=== PATIENT | male | born 1995 | race Caucasian/White ===

== ENCOUNTER 2024-06-13 16:46 | Emergency (ER) | payer OTHER ==
[2024-06-13 16:56] VITALS: RESP 18
--- NOTE | 2024-06-13 17:46 | ED ---
Male Urogenital HPI - General Chief complaint: Urogenital Stated complaint: UROGENITAL Time Seen by Provider: 06/13/24 16:57 Source: patient, RN notes reviewed, old records reviewed Mode of arrival: ambulatory Limitations: no limitations - History of Present Illness Initial comments: This is a 29-year-old male to the ER for evaluation of genital ulcers and pain painful lesions on the shaft of his penis. Patient believeshis ex and answered to the [place] has been sleeping around Complaint: testicle pain -: hour(s) Location: penis Radiation: none Severity: moderate Severity scale (1-10): 4 Consistency: constant Improves with: none Worsens with: none Reports: denies other symptoms - Related Data Previous Rx's Medication Instructions Recorded valACYclovir HCL [Valtrex] 1,000 mg PO BID #60 tablet 06/13/24 Allergies Allergy/AdvReac Type Severity Reaction Status Date / Time No Known Allergies Allergy Verified 06/13/24 16:51 Review of Systems ROS Statement: Those systems with pertinent positive or pertinent negative responses have been documented in the HPI. ROS Other: All systems not noted in ROS Statement are negative. Past Medical History Past Medical History: Asthma Additional Past Surgical History / Comment(s): ACL reconstruction Smoking Status: Current every day smoker Past Alcohol Use History: Occasional Past Drug Use History: Marijuana General Exam Limitations: no limitations General appearance: alert, in no apparent distress Head exam: Present: atraumatic, normocephalic, normal inspection Eye exam: Present: normal appearance, PERRL, EOMI. Absent: scleral icterus, conjunctival injection, periorbital swelling ENT exam: Present: normal exam, mucous membranes moist Neck exam: Present: normal inspection. Absent: tenderness, meningismus, lymphadenopathy Respiratory exam: Present: normal lung sounds bilaterally. Absent: respiratory distress, wheezes, rales, rhonchi, stridor Cardiovascular Exam: Present: regular rate, normal rhythm, normal heart sounds. Absent: systolic murmur, diastolic murmur, rubs, gallop, clicks GI/Abdominal exam: Present: soft, normal bowel sounds. Absent: distended, tenderness, guarding, rebound, rigid Extremities exam: Present: normal inspection, full ROM, normal capillary refill. Absent: tenderness, pedal edema, joint swelling, calf tenderness Back exam: Present: normal inspection Neurological exam: Present: alert, oriented X3, CN II-XII intact Psychiatric exam: Present: normal affect, normal mood Skin exam: Present: warm, dry, intact, normal color. Absent: rash Course Vital Signs 06/13/24 06/13/24 16:51 19:00 Temperature 98.5 F 98.1 F Pulse Rate 83 86 Respiratory 18 18 Rate Blood Pressure 140/88 140/76 O2 Sat by Pulse 99 97 Oximetry - Reevaluation(s) Reevaluation #1: 06/13/24 18:20 Medical records reviewed Reevaluation #2: 06/13/24 18:20 No change in symptoms Reevaluation #3: 06/13/24 18:20 Patient informed of results questions answered Reevaluation #4: Was pt. sent in by a medical professional or institution (ANDER Rutherford, SPORTS INFORMATION DIRECTOR, urgent care, hospital, or correction...) When possible be specific @ -no Did you speak to anyone other than the patient for history (EMS, parent, family, police, friend...)? What history was obtained from this source @ -no Did you review nursing and triage notes (agree or disagree)? Why? @ -agree Are old charts reviewed (outside hosp., previous admission, EMS record, old EKG, old radiological studies, urgent care reports/EKG's, correction records)? Report findings @ -yes Differential Diagnosis (chest pain, altered mental status, abdominal pain women, abdominal pain men, vaginal bleeding, weakness, fever, dyspnea, syncope, headache, dizziness, GI bleed, back pain, seizure, CVA, palpatations, mental health, musculoskeletal)? @ -prior EKG interpreted by me (3pts min.). @ -no X-rays interpreted by me (1pt min.). @ -no CT interpreted by me (1pt min.). @ -no U/S interpreted by me (1pt. min.). @ -no What testing was considered but not performed or refused? (CT, X-rays, U/S, labs)? Why? @ -none What meds were considered but not given or refused? Why? @ -none Did you discuss the management of the patient with other professionals (professionals i.e. ANDER Rutherford, SPORTS INFORMATION DIRECTOR, lab, RT, psych nurse, psychiatric social worker, feller operator, teacher, accounts officer, case managers)? Give summary @ -no Was smoking cessation discussed for >3mins.? @ -no Was critical care preformed (if so, how long)? @ -no Were there social determinants of health that impacted care today? How? (Homelessness, low income, unemployed, alcoholism, drug addiction, transportation, low edu. Level, literacy, decrease access to med. care, custodial, rehab)? @ -none Was there de-escalation of care discussed even if they declined (Discuss DNR or withdrawal of care, Hospice)? DNR status @ -no What co-morbidities impacted this encounter? (DM, HTN, Smoking, COPD, CAD, Cancer, CVA, ARF, Chemo, Hep., AIDS, mental health diagnosis, sleep apnea, morbid obesity)? @ -none Was patient admitted / discharged? Hospital course, mention meds given and route, prescriptions, significant lab abnormalities, going to OR and other pertinent info. @ - 29 male genital ulcers, EM, no formal diagnosis made does appear to be herpetic in nature. Patient put on Valtrex and can be discharged home Discharge Undiagnosed new problem with uncertain prognosis? @ -no Drug Therapy requiring intensive monitoring for toxicity (Heparin, Nitro, Insulin, Cardizem)? @ -no Were any procedures done? @ -no Diagnosis/symptom? @ -herpes outbreak Acute, or Chronic, or Acute on Chronic? @ -Acute Uncomplicated (without systemic symptoms) or Complicated (systemic symptoms)? @ -Complicated Side effects of treatment? @ -no Exacerbation, Progression, or Severe Exacerbation? @ -exacerbation Poses a threat to life or bodily function? How? (Chest pain, [place], [place], pneumonia, PE, COPD, DKA, ARF, appy, cholecystitis, CVA, Diverticulitis, Homicidal, Suicidal, threat to staff... and all critical care pts) @ -no Medical Decision Making - Medical Decision Making 29 male genital ulcers, EM, no formal diagnosis made does appear to be herpetic in nature. Patient put on Valtrex and can be discharged home - Lab Data Lab Results 06/13/24 06/13/24 06/13/24 Range/Units 17:58 17:58 17:58 Urine Color Colorless Urine Appearance Cloudy (Clear) Urine pH 7.5 (5.0-8.0) Ur Specific [place] 1.013 (1.001-1.035) Urine Protein Negative (Negative) Urine Glucose (UA) Negative (Negative) Urine Ketones Negative (Negative) Urine Blood Negative (Negative) Urine Nitrite Negative (Negative) Urine Bilirubin Negative (Negative) Urine Urobilinogen <2.0 (<2.0) mg/dL Ur Leukocyte Esterase Negative (Negative) Urine WBC <1 (0-5) /hpf Amorphous Sediment Rare H (None) /hpf Urine Mucus Rare H (None) /hpf Chlamydia DNA (PCR) Negative (Negative) HSV I DNA PCR Not detected (Not detected) HSV II DNA PCR Not detected (Not detected) HSV (PCR) Source Blood - EDTA N.gonorrhoeae DNA Probe Negative (Negative) Disposition Clinical Impression: Male genital ulcer Disposition: HOME SELF-CARE Condition: Good Instructions (If sedation given, give patient instructions): Genital Herpes Simplex (ED) Prescriptions: valACYclovir HCL [Valtrex] 1,000 mg PO BID #60 tablet Is patient prescribed a controlled substance at d/c from ED?: No Referrals: None,Stated [Primary Care Provider] - 1-2 days Time of Disposition: 18:00
[2024-06-13 18:24] LABS: Amorphous Sediment,Urine Rare /hpf; Appearance,Urine Cloudy (Clear); Bilirubin,Urine Negative (Negative); Blood,Urine Negative (Negative); Color,Urine Colorless; Glucose,Urine (UA) Negative (Negative); Ketones,Urine Negative (Negative); Leukocyte Esterase,Urine Negative (Negative); Mucus,Urine Rare /hpf; Nitrite,Urine Negative (Negative); PH, Urine 7.5 (5.0-8.0); Protein,Urine Negative (Negative); Specific Gravity,Urine 1.013 (1.001-1.035); Urobilinogen,Urine <2.0 mg/dL (<2.0); WBC,Urine <1 /hpf (0-5)
[2024-06-13] MEDS: valACYclovir HCL 1,000 MG TABLET PO STA (18:50)
[2024-06-13 19:02] VITALS: BP 140/76; PULSE 86; TEMP 98.1
[2024-06-15 12:28] LABS: C. trachomatis,PCR Negative (Negative)
[2024-06-15 12:33] LABS: N. gonorrhoeae,PCR Negative (Negative)
== END 2024-06-13 19:02 | disposition home or self-care (01) ==
LOC: EC 16:46
DX: N48.5 Ulcer of penis (principal); F17.200 Nicotine dependence, unspecified, uncomplicated
CPT/HCPCS: 81001; 87491; 87529; 87591; 99283

== ENCOUNTER 2024-07-11 15:26 | Emergency (ER) | payer OTHER ==
[2024-07-11 15:47] VITALS: BP 143/77; PULSE 67; RESP 18; TEMP 98.4
--- NOTE | 2024-07-11 16:27 | ED ---
General Adult HPI - General Chief complaint: Skin/Abscess/Foreign Body Stated complaint: rash/med issue Time Seen by Provider: 07/11/24 15:56 Source: patient, RN notes reviewed Mode of arrival: ambulatory Limitations: no limitations - History of Present Illness Initial comments: Patient is a 29-year-old male present to the emergency department with concern for rash. Patient states that is been present for a couple of weeks. Patient states he was shaving and had a bump that he cut. Patient states following this he had several other bumps that were somewhat uncomfortable and itchy. Patient states discomfort is with touch and mild. Patient states now it is more of a rash. No fever. No dysuria or urethral discharge. No fever. - Related Data Previous Rx's Medication Instructions Recorded valACYclovir HCL [Valtrex] 1,000 mg PO BID #60 tablet 06/13/24 Allergies Allergy/AdvReac Type Severity Reaction Status Date / Time No Known Allergies Allergy Verified 07/11/24 15:47 Review of Systems ROS Statement: Those systems with pertinent positive or pertinent negative responses have been documented in the HPI. ROS Other: All systems not noted in ROS Statement are negative. Constitutional: Denies: fever Eyes: Denies: eye pain ENT: Denies: ear pain Gastrointestinal: Reports: as per HPI Skin: Reports: rash Past Medical History Past Medical History: Asthma History of Any Multi-Drug Resistant Organisms: None Reported Additional Past Surgical History / Comment(s): ACL reconstruction Past Psychological History: No Psychological Hx Reported Smoking Status: Current every day smoker Past Alcohol Use History: Occasional Past Drug Use History: Marijuana General Exam Limitations: no limitations General appearance: alert, in no apparent distress Head exam: Present: normocephalic Eye exam: Present: normal appearance Respiratory exam: Present: normal lung sounds bilaterally Cardiovascular Exam: Present: regular rate, normal rhythm GI/Abdominal exam: Present: soft. Absent: tenderness exam: Present: other (Patient does have several small patches of dry skin on the penis that appear to be a healing type rash) Extremities exam: Present: normal inspection Neurological exam: Present: alert Psychiatric exam: Present: normal affect, normal mood Skin exam: Present: rash Course Vital Signs 07/11/24 15:42 Temperature 98.4 F Pulse Rate 67 Respiratory 18 Rate Blood Pressure 143/77 O2 Sat by Pulse 100 Oximetry Medical Decision Making - Medical Decision Making Was pt. sent in by a medical professional or institution (ANDER Rutherford, GENERAL MANAGER ORACLE DATA CLOUD, urgent care, hospital, or fdc...) When possible be specific @ -No Did you speak to anyone other than the patient for history (EMS, parent, family, police, friend...)? What history was obtained from this source @ -No Did you review nursing and triage notes (agree or disagree)? Why? @ -I reviewed and agree with nursing and triage notes Were old charts reviewed (outside hosp., previous admission, EMS record, old EKG, old radiological studies, urgent care reports/EKG's, fdc records)? Report findings @ -No old charts were reviewed Differential Diagnosis (chest pain, altered mental status, abdominal pain women, abdominal pain men, vaginal bleeding, weakness, fever, dyspnea, syncope, headache, dizziness, GI bleed, back pain, seizure, CVA, palpatations, mental health, musculoskeletal)? @ -Differential Fever: Pneumonia, viral URI, endocarditis, myocarditis, pericarditis, otitis, sinusitis, peritonsillar Abscess, retropharyngeal Abscess, epiglottitis, peritonitis, appendicitis, Stefany cystitis, diverticulitis, hepatitis, colitis, UTI, PID, TOA, pyelonephritis, prostatitis, epididymitis, meningitis, encephalitis, pulmonary embolism, CVA, thyroid storm, pancreatitis, adrenal crisis, cavernous sinus thrombosis, this is not meant to be an all-inclusive list. EKG interpreted by me (3pts min.). @ -As above X-rays interpreted by me (1pt min.). @ -None done CT interpreted by me (1pt min.). @ -None done U/S interpreted by me (1pt. min.). @ -None done What testing was considered but not performed or refused? (CT, X-rays, U/S, labs)? Why? @ -None What meds were considered but not given or refused? Why? @ -None Did you discuss the management of the patient with other professionals (professionals i.e. ANDER Rutherford, GENERAL MANAGER ORACLE DATA CLOUD, lab, RT, psych nurse, nursing home social worker, bloom conveyor operator, teacher, earth science technical officer, social work case manager)? Give summary @ -No Was smoking cessation discussed for >3mins.? @ -No Was critical care preformed (if so, how long)? @ -No Were there social determinants of health that impacted care today? How? (Homelessness, low income, unemployed, alcoholism, drug addiction, transportation, low edu. Level, literacy, decrease access to med. care, skilled nursing, rehab)? @ -No Was there de-escalation of care discussed even if they declined (Discuss DNR or withdrawal of care, Hospice)? DNR status @ -No What co-morbidities impacted this encounter? (DM, HTN, Smoking, COPD, CAD, Cancer, CVA, ARF, Chemo, Hep., AIDS, mental health diagnosis, sleep apnea, morbid obesity)? @ -None Was patient admitted / discharged? Hospital course, mention meds given and route, prescriptions, significant lab abnormalities, going to OR and other pertinent info. @ -Patient presents with rash with only mild symptoms of discomfort and itch. Rash appears to be a healing type rash that is not completely resolved yet. Rash is nonspecific and clearly not diagnostic of herpes or other infection. Patient is recommended [id number] antibiotic ointment and follow-up with his doctor. Patient does request testing and this will be ordered and patient is aware he will need to follow-up for results. Undiagnosed new problem with uncertain prognosis? @ -Etiology of rash is unable to be determined at this time Drug Therapy requiring intensive monitoring for toxicity (Heparin, Nitro, In sulin, Cardizem)? @ -No Were any procedures done? @ -No Diagnosis/symptom? @ -Rash Acute, or Chronic, or Acute on Chronic? @ -Acute Uncomplicated (without systemic symptoms) or Complicated (systemic symptoms)? @ -Default Side effects of treatment? @ -No Exacerbation, Progression, or Severe Exacerbation? @ -No Poses a threat to life or bodily function? How? (Chest pain, [place], [place], pneumonia, PE, COPD, DKA, ARF, appy, cholecystitis, CVA, Diverticulitis, Homicidal, Suicidal, threat to staff... and all critical care pts) @ -No Disposition Clinical Impression: Rash Disposition: HOME SELF-CARE Condition: Stable Instructions (If sedation given, give patient instructions): Acute Rash (ED) Additional Instructions: Please do follow-up with your primary care physician beginning of the week. Have primary care physician review lab results from today. Return for increased rash, pain, fever, worsening or changing symptoms or any other concerns. [id number] antibiotic ointment to affected area of rash twice daily. Is patient prescribed a controlled substance at d/c from ED?: No Referrals: None,Stated [Primary Care Provider] - 1-2 days Forms: Area PCPs Time of Disposition: 16:27
[2024-07-11] MEDS: BACITRACIN OINT 1 EACH PACKET TOPICAL ONE (16:29)
[2024-07-13 14:42] LABS: C. trachomatis,PCR Negative (Negative)
[2024-07-13 14:43] LABS: N. gonorrhoeae,PCR Negative (Negative)
== END 2024-07-11 16:40 | disposition home or self-care (01) ==
LOC: EC 15:26
DX: R21 Rash and other nonspecific skin eruption (principal); F17.200 Nicotine dependence, unspecified, uncomplicated
CPT/HCPCS: 87491; 87529; 87591; 99283

== ENCOUNTER 2024-08-18 08:59 | Emergency (ER) | payer OTHER ==
[2024-08-18] MEDS: ACETAMINOPHEN TAB 500 MG TAB PO STA (09:35)
[2024-08-18] MEDS: IBUPROFEN 600 MG TAB PO STA (09:35)
--- NOTE | 2024-08-18 09:35 | ED ---
General Adult HPI - General Chief complaint: Upper Respiratory Infection Stated complaint: Congestion Time Seen by Provider: 08/18/24 09:00 Source: patient, RN notes reviewed, old records reviewed Mode of arrival: ambulatory Limitations: no limitations - History of Present Illness Initial comments: This is a 29-year-old male who presents to the emergency department stating that starting yesterday he started having a fever and the chills and a cough. Patient denies any difficulty breathing shortness of breath or patient has any chest pain. Patient states he has a little bit of a sore throat. Patient denies any ear pain or pressure. Patient has abdominal pain patient has nausea vomiting diarrhea. Patient states he did not get the flu shot or COVID-vaccine - Related Data Previous Rx's Medication Instructions Recorded valACYclovir HCL [Valtrex] 1,000 mg PO BID #60 tablet 06/13/24 Oseltamivir [Tamiflu] 75 mg PO Q12HR #10 cap 08/18/24 Allergies Allergy/AdvReac Type Severity Reaction Status Date / Time No Known Allergies Allergy Verified 08/18/24 09:03 Review of Systems ROS Statement: Those systems with pertinent positive or pertinent negative responses have been documented in the HPI. ROS Other: All systems not noted in ROS Statement are negative. Past Medical History Past Medical History: Asthma History of Any Multi-Drug Resistant Organisms: None Reported Additional Past Surgical History / Comment(s): ACL reconstruction Past Psychological History: No Psychological Hx Reported Smoking Status: Current every day smoker, Vaper Past Alcohol Use History: Occasional Past Drug Use History: Marijuana General Exam - General Exam Comments Initial Comments: GENERAL: Patient is well-developed and well-nourished. Patient is nontoxic and well- hydrated and is in mild distress. ENT: Neck is soft and supple. No significant lymphadenopathy is noted. Oropharynx is clear. Moist mucous membranes. Neck has full range of motion without eliciting any pain. EYES: The sclera were anicteric and conjunctiva were pink and moist. Extraocular movements were intact and pupils were equal round and reactive to light. Eyelids were unremarkable. PULMONARY: Unlabored respirations. Good breath sounds bilaterally. No audible rales rhonchi or wheezing was noted. CARDIOVASCULAR: There is a regular rate and rhythm without any murmurs gallops or rubs. ABDOMEN: Soft and nontender with normal bowel sounds. SKIN: Skin is clear with no lesions or rashes and otherwise unremarkable. NEUROLOGIC: Patient is alert and oriented x3. Cranial nerves II through XII are grossly intact. Motor and sensory are also intact. Normal speech, volume and content. Symmetrical smile. MUSCULOSKELETAL: Normal extremities with adequate strength and full range of motion. No lower extremity swelling or edema. No calf tenderness. LYMPHATICS: No significant lymphadenopathy is noted PSYCHIATRIC: Normal psychiatric evaluation. Limitations: no limitations Course Vital Signs 08/18/24 08/18/24 09:00 10:02 Temperature 102.6 F H 102 F H Pulse Rate 104 H 89 Respiratory 18 16 Rate Blood Pressure 122/73 O2 Sat by Pulse 97 97 Oximetry Medical Decision Making - Medical Decision Making Was pt. sent in by a medical professional or institution (, ANDER, FURNACE CLERK, urgent care, hospital, or halfway...) When possible be specific @ -No Did you speak to anyone other than the patient for history (EMS, parent, family, police, friend...)? What history was obtained from this source @ -No Did you review nursing and triage notes (agree or disagree)? Why? @ -I reviewed and agree with nursing and triage notes Were old charts reviewed (outside hosp., previous admission, EMS record, old EKG, old radiological studies, urgent care reports/EKG's, halfway records)? Report findings @ -No old charts were reviewed Differential Diagnosis? @ -Influenza A, influenza B, RSV, pneumonia, bronchitis, COVID, this is not an all-inclusive list EKG interpreted by me (3pts min.). @ -As above X-rays interpreted by me (1pt min.). @ -Chest x-ray shows no acute abnormality CT interpreted by me (1pt min.). @ -None done U/S interpreted by me (1pt. min.). @ -None done What testing was considered but not performed or refused? (CT, X-rays, U/S, labs)? Why? @ -None What meds were considered but not given or refused? Why? @ -None Did you discuss the management of the patient with other professionals (brady hollis i.e. ANDER Rutherford, FURNACE CLERK, lab, RT, psych nurse, psychiatric social worker, wood stainer, teacher, community liaison officer, manager case)? Give summary @ -No Was smoking cessation discussed for >3mins.? @ -No Was critical care preformed (if so, how long)? @ -No Were there social determinants of health that impacted care today? How? (Homelessness, low income, unemployed, alcoholism, drug addiction, transportation, low edu. Level, literacy, decrease access to med. care, shelter, rehab)? @ -No Was there de-escalation of care discussed even if they declined (Discuss DNR or withdrawal of care, Hospice)? DNR status @ -No What co-morbidities impacted this encounter? (DM, HTN, Smoking, COPD, CAD, Cancer, CVA, ARF, Chemo, Hep., AIDS, mental health diagnosis, sleep apnea, morbid obesity)? @ -None Was patient admitted / discharged? Hospital course, mention meds given and route, prescriptions, significant lab abnormalities, going to OR and other pertinent info. @ -Patient's lab work came back showed influenza A. Patient was given Tylenol Motrin in the emergency department and was feeling considerably better. Undiagnosed new problem with uncertain prognosis? @ -No Drug Therapy requiring intensive monitoring for toxicity (Heparin, Nitro, Insulin, Cardizem)? @ -No Were any procedures done? @ -No Diagnosis/symptom? @ -Influenza A Acute, or Chronic, or Acute on Chronic? @ -Acute Uncomplicated (without systemic symptoms) or Complicated (systemic symptoms)? @ -Complicated Side effects of treatment? @ -No Exacerbation, Progression, or Severe Exacerbation? @ -No Poses a threat to life or bodily function? How? (Chest pain, [place], [place], pneumonia, PE, COPD, DKA, ARF, appy, cholecystitis, CVA, Diverticulitis, Homicidal, Suicidal, threat to staff... and all critical care pts) @ -No - Lab Data Lab Results 08/18/24 08/18/24 Range/Units 09:28 09:28 Influenza Type A (PCR) Detected A (Not Detectd) Influenza Type B (PCR) Not Detected (Not Detectd) RSV (PCR) Not Detected (Not Detectd) SARS-CoV-2 (PCR) Not Detected (Not Detectd) Group A Strep (PCR) NOT DETECTED (Not Detectd) Disposition Clinical Impression: Influenza Disposition: HOME SELF-CARE Instructions (If sedation given, give patient instructions): Influenza (ED) Prescriptions: Oseltamivir [Tamiflu] 75 mg PO Q12HR #10 cap Is patient prescribed a controlled substance at d/c from ED?: No Referrals: Duane Lundy MD [STAFF PHYSICIAN] - 1-2 days (Contact a primary care office to become established with a provider.) None,Stated [Primary Care Provider] - 1-2 days Forms: Area PCPs Time of Disposition: 10:30
--- NOTE | 2024-08-18 10:02 | XR ---
EXAMINATION TYPE: XR chest 2V DATE OF EXAM: 08/18/2024 CLINICAL INDICATION: Male, 29 years old with history of Difficulty breathing , TECHNIQUE: Frontal and lateral views of the chest are obtained. COMPARISON: None FINDINGS: There is no focal air space opacity, pleural effusion, or pneumothorax seen. The cardiac silhouette size is within normal limits. The osseous structures are intact. IMPRESSION: No acute pulmonary process. [facility], , 08/18/2024 9:59 AM
[2024-08-18 10:03] VITALS: PULSE 89; RESP 16
[2024-08-18 10:09] LABS: Influenza A Detected (Not Detectd); Influenza B Not Detected (Not Detectd); RSV Not Detected (Not Detectd)
[2024-08-18 10:47] VITALS: BP 120/86; TEMP 99.7
== END 2024-08-18 10:46 | disposition home or self-care (01) ==
LOC: EC 08:59
DX: J10.1 Influenza due to other identified influenza virus with other respiratory manifestations (principal); F17.290 Nicotine dependence, other tobacco product, uncomplicated
CPT/HCPCS: 71046; 87636; 87651; 99283